=== PATIENT | male | born 1985 | race Caucasian/White ===

== ENCOUNTER 2021-03-09 08:35 | Outpatient (CLI) | payer OTHER, SELFPAY ==
[2021-03-09 09:08] LABS: Post Vasectomy Sperm Presence None Seen (None Seen)
== END 2021-03-09 08:36 | disposition home or self-care (01) ==
LOC: CHSLAB 08:40
PROVIDERS: PCP Family Medicine; Visit Provider Family Medicine
DX: Z30.09 Encounter for other general counseling and advice on contraception (principal)
CPT/HCPCS: 88160; 89321